=== PATIENT | male | born 1955 | race Caucasian/White ===

== ENCOUNTER 2021-11-27 22:22 | Inpatient (IN) | payer MEDICARE ==
[~2021-11-27] VITALS: Ht 195.6 cm; Wt 113.8 kg
--- NOTE | 2021-11-27 22:22 | NUR ---
PT TO ROOM 10 VIA EMS
[2021-11-27 22:55] LABS: HEMATOCRIT 39.9 % (39.0-50.0); HEMOGLOBIN 12.7 g/dl (14.0-18.0); IMMATURE GRANULOCYTES 0.2 % (0.0-5.0); MEAN CELL VOLUME 64.8 fL CALC (80.0-100.0); MEAN CORPUSCULAR HGB 20.6 pG CALC (26.0-32.0); MEAN CORPUSCULAR HGB CONC 31.8 g/dL CAL (32.0-36.0); NEUT# 3.61 thou/uL (1.82-7.42); RED BLOOD COUNT 6.16 mill/uL (4.70-6.10); RED CELL DISTRI WIDTH 17.1 % (11.5-15.5)
[2021-11-27] MEDS ORDERED: ASPIRIN81 MG PO (23:01)
[2021-11-27] MEDS ORDERED: LISINOPRIL10 MG PO (23:01)
[2021-11-27] MEDS ORDERED: PAROXETINE20 MG PO (23:02)
[2021-11-27] MEDS ORDERED: ATORVASTATIN CA40 MG PO (23:02)
[2021-11-27] MEDS ORDERED: PILOCARPINE5 MG PO (23:04)
[2021-11-27] MEDS ORDERED: PANTOPRAZOLE SO40 M1 PO (23:05)
[2021-11-27 23:17] LABS: ACT PARTIAL THROMBO TIME 29.9 SECONDS (20.0-32.5); PROTHROMBIN TIME 10.8 SECONDS (9.0-12.5)
[2021-11-27 23:21] LABS: D-DIMER 1.2 mg/L (0.19-0.60)
--- NOTE | 2021-11-27 23:40 | NUR ---
PT WITHOUT DISTRESS. SUPPORT PERSON AT BS.
[2021-11-27 23:41] LABS: ALBUMIN 4.2 g/dL (3.2-5.0); BILIRUBIN, TOTAL 0.7 mg/dL (0.0-1.4); CREATININE 1.7 mg/dL (0.7-1.3); POTASSIUM 4.1 mmol/l (3.5-5.1); TOTAL PROTEIN 7.9 g/dL (6.3-8.2)
--- NOTE | 2021-11-28 01:15 | NUR ---
PT RESTING. REASSESSMENT DONE. NO DISTRESS. SUPPORT PERSON AT BS.
--- NOTE | 2021-11-28 01:30 | NUR ---
PT TO BE ADMITTED. WILL CHANGE MONITORING TO EVERY 4 HOURS.
--- NOTE | 2021-11-28 02:48 | NUR ---
PT TRANSFERRED TO BED.
--- NOTE | 2021-11-28 06:31 | NUR ---
RESTING COMFORTABLY. NO DISTRESS.
--- NOTE | 2021-11-28 08:51 | NUR ---
REPORT GIVEN TO MADDY
--- NOTE | 2021-11-28 09:04 | NUR ---
PT ARRIVED VIA STRECTHER ACCOMPANIED BY EMI DELGADO AND Randy GUPTA RN. PT A&O X3. NO DISTRESS NOTED. PT CURRENTLY ON ROOM AIR SUSTAINING 98%. CUSTOMER SERVICE SALES ASSOCIATE COUGH NOTED ALTHOUGH PT REPORTS PRODUCTION AT TIME. CLEAR/DIMINISHED BREATH SOUNDS UPON AUSUCULTATION. ACTIVE BOWEL SOUNDS X4 QUADRANTS 11/27/21, REPORTS LOW APPETITE FOR THE PAST COUPLE OF DAYS. #20G LAC HEALTHY AND PATENT; #22G RH EMS SITE HEALTHY AND PATENT; REMDESIVIR INITIATED AT THIS TIME. PT EDUCATED ON MEDICATION PRIOR TO INITIATION. PT ALSO EDUCATED ON DECARON. PT REPORTS INCREASING WEAKNESS. ASSESSMENT COMPLETED. DISCUSSED POC. CALL LIGHT WITHIN REACH. ORIENTED PT TO ROOM. ISOLATION PRECAUTIONS IN PLACE.
[2021-11-28 10:42] VITALS: BP 150/99
--- NOTE | 2021-11-28 12:00 | NUR ---
PT WATCHING TV AT THIS TIME. STATES NO PAIN JUST FEELS VERY TIRED. BOTH IV PATENT. SALINE LOCKED. FLUSHED WITH NO RESISTANCE. FALL/SAFETY PRECAUTIONS IN PLACE. CALL LIGHT WITHIN REACH.
[2021-11-28 15:58] VITALS: BP 138/85
--- NOTE | 2021-11-28 17:01 | NUR ---
PT WATCHING TV. STATES STILL FEELING VERY WEAK. BEVARAGES GIVEN TO PT. INSTRUCTED PT THE USE OF IS. STATES NO OTHER NEEDS AT THIS TIME. CALL LIGHT WITHIN REACH. FALL/SAFETY PRECAUTIONS IN PLACE.
[2021-11-28 19:40] VITALS: BP 110/63
--- NOTE | 2021-11-28 22:02 | NUR ---
PHYSICAL ASSESMENT COMPLETE. PT CURRENTLY DENIES PAIN OR DISCOMFORT. SCHEDULED MEDICATIONS AND PRN MEDICATION ADMINISTERED, SEE E-MAR. PT DENIES ANY NEEDS AT THIS TIME. PLAN OF CARE REVIEWED, PT DENIES QUESTIONS, VERBALIZES UNDERSTANDING. ITEMS WITHIN REACH, BED LOCKED IN LOW POSITION W/ BEDRAILS UP X2. CALL CAPELLAN WITHIN REACH, AGREES TO CALL PRN.
--- NOTE | 2021-11-29 | NUR ---
PT LAYING IN BED WITH EYES CLOSED, APPEARS TO BE SLEEPING, APPEARS COMFORTABLE AND IN NO DISTRESS. RESPIRATIONS REGULAR AND UNLABORED. ITEMS REMAIN WITHIN REACH, CALL CAPELLAN REMAINS WITHIN REACH. BED REMAINS LOCKED AND IN LOW POSITION WITH BEDRAILS UP X2. WILL CONTINUE TO MONITOR.
--- NOTE | 2021-11-29 04:00 | NUR ---
PT RESTING IN BED, NO SIGNS OF DISTRESS NOTED, RESP EVEN AND UNLABORED. PT VOICES NO NEEDS OR COMPLAINTS AT THIS TIME. CALL LIGHT IN REACH, CONTINUE TO MONITOR.
[2021-11-29 05:15] VITALS: BP 191/99
[2021-11-29 05:51] LABS: HEMOGLOBIN 12.5 g/dl (14.0-18.0); IMMATURE GRANULOCYTES 0.3 % (0.0-5.0); MEAN CELL VOLUME 65.5 fL CALC (80.0-100.0); MEAN CORPUSCULAR HGB 20.5 pG CALC (26.0-32.0); MEAN CORPUSCULAR HGB CONC 31.3 g/dL CAL (32.0-36.0); NEUT# 5.19 thou/uL (1.82-7.42); RED BLOOD COUNT 6.11 mill/uL (4.70-6.10); RED CELL DISTRI WIDTH 17.4 % (11.5-15.5)
[2021-11-29 06:31] LABS: ALBUMIN 3.7 g/dL (3.2-5.0); ALKALINE PHOSPHATASE 69 u/l (38-126); ANION GAP 14 (6-22 (CALC)); BILIRUBIN, TOTAL 0.8 mg/dL (0.0-1.4); BUN 22 mg/dL (8-23); BUN/CREATININE RATIO 17 (12-20 (CALC)); C-REACTIVE PROTEIN 3.3 mg/dL (0-0.9); CARBON DIOXIDE 24 mmol/l (22-30); CHLORIDE 106 mmol/l (95-108); CREATININE 1.3 mg/dL (0.7-1.3); GFR 55 ML/MIN (>=60 (CALC)); GFR FOR AFR.AMER. > 60 ML/MIN (>=60 (CALC)); POTASSIUM 4.9 mmol/l (3.5-5.1); SGOT/AST 59 u/l (19-48); SODIUM 139 mmol/l (137-146); TOTAL PROTEIN 7.3 g/dL (6.3-8.2)
[2021-11-29 06:45] VITALS: BP 178/94
--- NOTE | 2021-11-29 06:50 | NUR ---
SPOKE TO DR BURGESS REGARDING PTS HIGH BP AT 178/94 AND TEMP AT 100.8 F. STATED HE WOULD SEE PT SHORTLY AND WAS OKAY WITH VITALS AT THE MOMENT.
--- NOTE | 2021-11-29 07:05 | NUR ---
REPORT FROM FATMATA DELGADO. ASSUMED PT CARE.
[2021-11-29 08:00] VITALS: BP 164/73
--- NOTE | 2021-11-29 08:20 | NUR ---
SPUTUM SAMPLE OBTAINED AT THIS TIME AND SENT TO LAB.
[2021-11-29 09:29] VITALS: BP 94/54
--- NOTE | 2021-11-29 09:29 | NUR ---
PT NOTED SITTING UP IN BED. RESPIRATIONS EVEN AND UNLABORED. PT AFEBRILE AT THIS TIME. MORE AWAKE AND ALERT. O2 SAT 88-89% ON RA. APPLIED 2L/M VIA NC AT THIS TIME SAT UP TO 93%. NO APPARENT DISTRESS NOTED. DISCUSSED POC. PT VERBALIZED UNDERSTANDING. CALL LIGHT WITHIN REACH. WILL CONTINUE TO MONITOR.
--- NOTE | 2021-11-29 10:45 | NUR ---
PHYSICIAN AT BEDSIDE TO DISCUSS POC.
--- NOTE | 2021-11-29 13:12 | NUR ---
PT RESTING IN BED. NO APPARENT DISTRESS NOTED. RESPIRATIONS EVEN AND UNLABORED. 02 @ 2L/M VIA NC. CALL LIGHT WITHIN REACH. WILL CONTINUE TO MONITOR.
[2021-11-29 15:00] VITALS: BP 97/53
--- NOTE | 2021-11-29 15:53 | NUR ---
PT SIGNIFICANT OTHER CALLED FOR UPDATE. PASSCODE VERIFIED, UPDATE PROVIDED.
[2021-11-29 19:00] VITALS: BP 140/77
[2021-11-30 04:00] VITALS: BP 171/82
--- NOTE | 2021-11-30 04:12 | NUR ---
PT LAYING IN BED RESTING, NO APPARENT DISTRESS, RESPIRATIONS REG & UNLABORED. PT DENIES ANY OTHER NEEDS AT THIS TIME. ITEMS WITHIN REACH BED LOCKED IN LOW POSITION W/ BEDRAILS UP X2. CALL CAPELLAN WITHIN REACH, AGREES TO CALL PRN.
[2021-11-30 05:28] LABS: IMMATURE GRANULOCYTES 0.2 % (0.0-5.0); MEAN CELL VOLUME 64.8 fL CALC (80.0-100.0); MEAN CORPUSCULAR HGB 20.4 pG CALC (26.0-32.0); MEAN CORPUSCULAR HGB CONC 31.5 g/dL CAL (32.0-36.0); NEUT# 4.62 thou/uL (1.82-7.42); RED BLOOD COUNT 5.09 mill/uL (4.70-6.10); RED CELL DISTRI WIDTH 15.9 % (11.5-15.5)
[2021-11-30 05:39] LABS: HEMOGLOBIN 10.4 g/dl (14.0-18.0)
[2021-11-30 05:42] LABS: ALKALINE PHOSPHATASE 61 u/l (38-126); BILIRUBIN, TOTAL 0.6 mg/dL (0.0-1.4); BUN 19 mg/dL (8-23); BUN/CREATININE RATIO 17 (12-20 (CALC)); CARBON DIOXIDE 24 mmol/l (22-30); CHLORIDE 107 mmol/l (95-108); CREATININE 1.1 mg/dL (0.7-1.3); GFR > 60 ML/MIN (>=60 (CALC)); GFR FOR AFR.AMER. > 60 ML/MIN (>=60 (CALC)); SGOT/AST 39 u/l (19-48); SODIUM 136 mmol/l (137-146); TOTAL PROTEIN 6.1 g/dL (6.3-8.2)
[2021-11-30 05:43] LABS: ANION GAP 9 (6-22 (CALC)); POTASSIUM 3.9 mmol/l (3.5-5.1)
[2021-11-30 08:21] VITALS: BP 161/93
--- NOTE | 2021-11-30 12:53 | NUR ---
S- Pt reported he was told to stop using 02 last pm. 0- Pt resting in bed with only min head elevation. No [address], has it there if he needs it. Pt was indep in bed mobility. Sit to and from stand with supervision only. He ambulated in room x 60' without assist other than IV pole being moved for him. Pt ambulated in and out of BR with no difficulty noted. BP 168/82 to 161/81 02 sats 93 to 94% HR 82. Nursing notified of BP. Pt instructed in exercises for home and gradual increasing activity. A- [facility]. P- will follow per POC.
[2021-11-30 16:00] VITALS: BP 112/62
[2021-11-30 19:00] VITALS: BP 125/67
[2021-12-01 04:00] VITALS: BP 136/61
[2021-12-01 06:24] LABS: HEMOGLOBIN 10.6 g/dl (14.0-18.0); IMMATURE GRANULOCYTES 0.2 % (0.0-5.0); MEAN CELL VOLUME 64.3 fL CALC (80.0-100.0); MEAN CORPUSCULAR HGB 20.7 pG CALC (26.0-32.0); MEAN CORPUSCULAR HGB CONC 32.1 g/dL CAL (32.0-36.0); NEUT# 3.39 thou/uL (1.82-7.42); RED BLOOD COUNT 5.13 mill/uL (4.70-6.10); RED CELL DISTRI WIDTH 15.8 % (11.5-15.5)
[2021-12-01 06:36] LABS: ALBUMIN 3.2 g/dL (3.2-5.0); ALKALINE PHOSPHATASE 67 u/l (38-126); ANION GAP 13 (6-22 (CALC)); BILIRUBIN, TOTAL 0.6 mg/dL (0.0-1.4); BUN 19 mg/dL (8-23); BUN/CREATININE RATIO 19 (12-20 (CALC)); C-REACTIVE PROTEIN 4.7 mg/dL (0-0.9); CARBON DIOXIDE 24 mmol/l (22-30); CHLORIDE 106 mmol/l (95-108); GFR > 60 ML/MIN (>=60 (CALC)); GFR FOR AFR.AMER. > 60 ML/MIN (>=60 (CALC)); POTASSIUM 4.4 mmol/l (3.5-5.1); SGOT/AST 34 u/l (19-48); SODIUM 138 mmol/l (137-146); TOTAL PROTEIN 6.4 g/dL (6.3-8.2)
[2021-12-01 08:06] VITALS: BP 154/87
--- NOTE | 2021-12-01 08:20 | NUR ---
SHIFT CHANGE REPORT, PT AWAKE ALERT AND ORIENTED RELAXING IN BED, NO C/O DISCOMFORT, HAVING EPISODE DRY COUGH, IVF INFUSING, CALL CAPELLAN IN REACH AND BED LOCKED IN LOWEST POSITION.
[2021-12-01 10:30] VITALS: BP 140/79
[2021-12-01] MEDS ORDERED: DEXAMETHASON6 MG PO (11:16)
[2021-12-01] MEDS ORDERED: ZITHROMAX250 MG PO (11:17)
[2021-12-01] MEDS ORDERED: ASPIRIN REGULA325 M1 PO (11:29)
--- NOTE | 2021-12-01 11:37 | NUR ---
S- pt without complaints. 0- Pt resting in bed, bed mobility was indep. He ambulated n room x 80 with no LOB noted, no assist device, therapist assisting with IV pole. Standing activities including up on toes, mini squats, marching x 20 reps each. Pt unable to maintain tandum stand without assist, SLS <10 sec on either leg. Pt reported difficulty with tandum walking/SLS even when he was younger. Pt instructed in slow progressing of activity once he gets home. Prone lying and pacing himself discussed. A- [facility] 18 home P- Follow per POC.
[2021-12-01 14:42] VITALS: BP 156/84
== END 2021-12-01 16:11 | disposition home or self-care (01) | DRG 177 ==
LOC: ED 22:22 → ED-I 22:33 → ED 11-28 02:15 → MS2 11-28 02:16 → ED-I 11-28 02:16 → MS2 11-28 07:25
PROVIDERS: Family Medicine; Nurse Practitioner; ADMIT Internal Medicine; ATTEND Internal Medicine
PROC: XW033E5 Introduction of Remdesivir Anti-infective into Peripheral Vein, Percutaneous Approach, New Technology Group 5 (ICD-10-PCS; principal; 2021-11-28)
DX: U07.1 COVID-19 (principal); J12.82 Pneumonia due to coronavirus disease 2019; J44.1 Chronic obstructive pulmonary disease with (acute) exacerbation; J44.0 Chronic obstructive pulmonary disease with (acute) lower respiratory infection; R09.02 Hypoxemia; I10 Essential (primary) hypertension; I25.10 Atherosclerotic heart disease of native coronary artery without angina pectoris; E78.5 Hyperlipidemia, unspecified; F32.A Depression, unspecified; F41.9 Anxiety disorder, unspecified; K21.9 Gastro-esophageal reflux disease without esophagitis; Z85.819 Personal history of malignant neoplasm of unspecified site of lip, oral cavity, and pharynx; Z95.5 Presence of coronary angioplasty implant and graft
CPT/HCPCS: J1650; Q9967

== ENCOUNTER 2023-02-23 15:44 | Emergency (ER) | payer OTHER, MEDICARE ==
[2023-02-23] VITALS (14 sets, daily range): BP systolic 138–201; BP diastolic 69–110
[~2023-02-23] VITALS: Ht 195.6 cm; Wt 113.3 kg
[~2023-02-23 15:44] MED LIST: ASPIRIN REGULA325 M1 PO; ASPIRIN81 MG PO; ATORVASTATIN CA40 MG PO; DEXAMETHASON6 MG PO; LISINOPRIL10 MG PO; PANTOPRAZOLE SO40 M1 PO; PAROXETINE20 MG PO; PILOCARPINE5 MG PO; ZITHROMAX250 MG PO
[2023-02-23 19:59] LABS: BASO% 0.8 % (0-3); EOS% 3.5 % (0-8); HEMATOCRIT 33.9 % (39.0-50.0); HEMOGLOBIN 10.6 g/dl (14.0-18.0); IMMATURE GRANULOCYTES 0.7 % (0.0-5.0); LYMPH% 26.4 % (15-41); MEAN CELL VOLUME 65.1 fL CALC (80.0-100.0); MEAN CORPUSCULAR HGB 20.3 pG CALC (26.0-32.0); MEAN CORPUSCULAR HGB CONC 31.3 g/dL CAL (32.0-36.0); MONO% 7.6 % (2-13); NEUT# 4.56 thou/uL (1.82-7.42); RED BLOOD COUNT 5.21 mill/uL (4.70-6.10); RED CELL DISTRI WIDTH 15.7 % (11.5-15.5)
[2023-02-23 20:08] LABS: ANION GAP 12 (6-22 (CALC)); BILIRUBIN, TOTAL 0.5 mg/dL (0.2-1.3); BUN 14 mg/dL (8-23); BUN/CREATININE RATIO 12 (12-20 (CALC)); CARBON DIOXIDE 28 mmol/l (22-30); CHLORIDE 105 mmol/l (95-108); CREATININE 1.1 mg/dL (0.7-1.3); GFR FOR AFR.AMER. > 60 ML/MIN (>=60 (CALC)); GFR OTHER RACES > 60 ML/MIN (>=60 (CALC)); POTASSIUM 4.1 mmol/l (3.5-5.1); SGOT/AST 41 u/l (19-48); SODIUM 141 mmol/l (137-146); TOTAL PROTEIN 7.6 g/dL (6.3-8.2)
[2023-02-23 20:09] LABS: ALBUMIN 4.3 g/dL (3.2-5.0); ALKALINE PHOSPHATASE 105 u/l (38-126)
[2023-02-23] MEDS ORDERED: ULTRAM50 MG PO (20:24)
== END 2023-02-23 21:08 | disposition home or self-care (01) | DRG 999 ==
LOC: ED 15:44
PROVIDERS: Emergency Medicine
DX: S00.11XA Contusion of right eyelid and periocular area, initial encounter (principal); S06.9X1A Unspecified intracranial injury with loss of consciousness of 30 minutes or less, initial encounter; M25.531 Pain in right wrist; M25.561 Pain in right knee; H11.31 Conjunctival hemorrhage, right eye; I10 Essential (primary) hypertension; W18.30XA Fall on same level, unspecified, initial encounter; Y93.89 Activity, other specified; Y99.0 Civilian activity done for income or pay; Z95.5 Presence of coronary angioplasty implant and graft

== ENCOUNTER 2023-07-01 16:38 | Inpatient (IN) | payer MEDICARE, OTHER ==
[2023-07-01] VITALS (11 sets, daily range): BP systolic 133–172; BP diastolic 69–93
[~2023-07-01] VITALS: Ht 195.6 cm; Wt 120.0 kg
[~2023-07-01 16:38] MED LIST changes: +ULTRAM50 MG PO
--- NOTE | 2023-07-01 16:38 | NUR ---
PT ARRIVED VIA EMS STRETCHER IN STABLE CONDITION, BEDSIDE REPORT GIVEN WHICH WAS HEADACHE, BLURRED VISION, DIZZINESS, AND HYPOTENSION WITH QUESTIONABLE LEFT SIDED WEAKNESS.
--- NOTE | 2023-07-01 16:40 | NUR ---
IV ESTABLISHED 20 LEFT AC, BLOOD OBTAINED. PT C/O RIGHT SIDED HEADACHE, BLURRED VISION, DIZZINESS AND LOW BLOOD PRESSURE WHICH STARTED 1.5 HOURS AGO. BEDSIDE NIHSS OBTAINED, DR LANCASTER NOTIFIED OF FINDINGS.
--- NOTE | 2023-07-01 16:55 | NUR ---
UPON OBTAINING #20 IV IN LEFT ARM, PT STARTS DESCRIBING SYMPTOMS IN DEPTH. HE STATED " IT WAS THE FUNNIEST THING. ABOUT 1.5 HOURS AGO I GOT REAL DIZZY , MY VISION BECAME BLURRED, I FELT LIKE I WAS SPINNING. I CHECKED MY BLOOD PRESSURE AND IT WAS LOW. I SAW A BLUISH/GREENISH TENT WHEN EVERYTHING GOT BLURRY. UPON ASSESSMENT, PT NOTED TO HAVE LEFT SIDED WEAKNESS. MD NOTIFIED, STROKE ALERT CALLED.
[2023-07-01 17:03] LABS: BASO% 0.6 % (0-3); EOS% 2.6 % (0-8); HEMATOCRIT 34.2 % (39.0-50.0); HEMOGLOBIN 10.8 g/dl (14.0-18.0); IMMATURE GRANULOCYTES 0.3 % (0.0-5.0); LYMPH% 17.6 % (15-41); MEAN CELL VOLUME 66.4 fL CALC (80.0-100.0); MEAN CORPUSCULAR HGB CONC 31.6 g/dL CAL (32.0-36.0); MONO% 10.7 % (2-13); NEUT# 4.52 thou/uL (1.82-7.42); NEUT% 68.2 % (42-76); RED BLOOD COUNT 5.15 mill/uL (4.70-6.10); RED CELL DISTRI WIDTH 16.5 % (11.5-15.5)
--- NOTE | 2023-07-01 17:05 | NUR ---
TELENEUROLOGY AT BEDSIDE TO EXAMINE PT. ORDERS TO DO Q20 NEURO CHECKS S/T LEFT SIDED WEAKNESS. PT AND TELENEUROLOGY DISCUSSED IN LENGTH THE RISKS AND BENEFITS OF TENECTEPLASE. DECISION MADE TO HOLD MEDICINE AT THIS TIME AND REEVALUATE PT FREQUENTLY. PT ALERT AND ORIENTED X 3, NO FACIAL DROOP OR SLURRED SPEECH NOTED, PHARMACY DIRECTOR UNEQUAL, DRIFT NOTED TO LEFT UPPER AND LOWER EXTREMITIES, SENSORY IMPAIRMENT ALSO NOTED.
[2023-07-01 17:15] LABS: ALBUMIN 3.9 g/dL (3.2-5.0); CHOLESTEROL HDL RATIO 3.5 (<4.4 (CALC)); CREATININE 1.8 mg/dL (0.7-1.3); POTASSIUM 4.4 mmol/l (3.5-5.1); TOTAL PROTEIN 7.1 g/dL (6.3-8.2)
[2023-07-01 17:16] LABS: BILIRUBIN, TOTAL 1.1 mg/dL (0.2-1.3)
[2023-07-01 17:24] LABS: INTERNATIONAL NORMALIZED RATIO 1.1 RATIO (0.7-1.3); PROTHROMBIN TIME 10.4 SECONDS (9.0-12.5)
[2023-07-01] MEDS ORDERED: NORVASC5 M1 PO (17:52)
[2023-07-01] MEDS ORDERED: HYDROCHLOROT25 MG PO (17:53)
[2023-07-01 19:20] LABS: ALBUMIN 3.9 g/dL (3.2-5.0); ALKALINE PHOSPHATASE 82 u/l (38-126); BILIRUBIN, TOTAL 1.1 mg/dL (0.2-1.3); C-REACTIVE PROTEIN < 0.5 mg/dL (0-0.9); MAGNESIUM 2.1 mg/dL (1.6-2.3); SGOT/AST 41 u/l (19-48); TOTAL PROTEIN 7.1 g/dL (6.3-8.2)
--- NOTE | 2023-07-01 20:20 | NUR ---
PT ARRIVES TO ED VIA STRETCHER, ACCOMPANIED BY Toi PRICE RN AND FAMILY MEMBER. PT AMBULATORY FROM STRETCHER TO BED WITH STEADY BALANCED GAIT.
--- NOTE | 2023-07-01 20:27 | NUR ---
PT REPORT WAS CALLED AND GIVEN TO YURIDIA. PT WAS TAKEN UP BY STRETCHER AND STILL AT BEDSIDE.
--- NOTE | 2023-07-01 21:00 | NUR ---
SPOKE WITH DR. SERNA IN ED REGARING PT'S REPORT OF MILD HEADACHE AND NAUSEA. ORDER FOR TYLENOL AND ZOFRAN RECEIVED. SEE E-MAR.
--- NOTE | 2023-07-01 21:41 | NUR ---
PRE-PREPARED AFTER HOURS MEAL FROM DIETARY DEPT WARMED AND PROVIDED TO PT.
--- NOTE | 2023-07-01 23:45 | NUR ---
PT APPEARS TO BE SLEEPING COMFORTABLY, RESPIRATIONS REGUALR AND UNLABORED, SP02 94%, SB ON WEB DEVELOPMENT INTERN. NO APPARENT DISTRESS. CALL CAPELLAN REMAINS WITHIN REACH.
[2023-07-02] VITALS (42 sets, daily range): BP systolic 95–175; BP diastolic 51–100
--- NOTE | 2023-07-02 02:26 | NUR ---
PT APPEARS TO BE SLEEPING COMFORTABLY, RESPIRATIONS REGUALR AND UNLABORED, SP02 92%, SB ON STATION REPAIRER. NO APPARENT DISTRESS. CALL CAPELLAN REMAINS WITHIN REACH.
--- NOTE | 2023-07-02 03:00 | NUR ---
NOTED PT HAS SHORT BUT FREQUENT DROPS IN SPO2 DURING SLEEP, LOW 85% NON SUSTAINED, PT TRIALED ON SUPPLEMENTAL 02 @ 2L/M VIA NC. SPO2 HAS REMAINS >95% SINCE APPLICATION OF 02. HEART RATE ON SCREEN PRINTING LOADER UNLOADER IS NOTED TO SHOW LOWER RATES IN PT'S BRADYCARDIA. DOWN INTO THE 40'S WITH ONE INSTANCE INTO THE 30'S. NON-SUSTAINED AND ASYMPTOMATIC. WILL CONTINUE TO MONITOR.
--- NOTE | 2023-07-02 04:28 | NUR ---
PT APPEARS TO BE SLEEPING COMFORTABLY, RESPIRATIONS REGUALR AND UNLABORED, SP02 99%, SB ON OVERLOCK COLLAR SETTER. NO APPARENT DISTRESS. CALL CAPELLAN REMAINS WITHIN REACH.
--- NOTE | 2023-07-02 06:30 | NUR ---
PT APPEARS TO BE SLEEPING COMFORTABLY, RESPIRATIONS REGUALR AND UNLABORED, SP02 99%, SB ON RN MATERNAL CHILD. NO APPARENT DISTRESS. CALL CAPELLAN REMAINS WITHIN REACH.
--- NOTE | 2023-07-02 08:43 | NUR ---
Patient sitting up in bed eating breakfast. Assessment completed. Patient refuses non-skid socks and SCDs. Patient to have MRI today. Lungs clear to asculation. Breathing even and unlabored. SB on the monitor. NIH score of 3. C/O SOLER, but denies needing pain relief. 2L NC, denies using oxygen at home. 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 NAD noted. Bed in low position. Call light next to R arm. Will continue to monitor.
--- NOTE | 2023-07-02 08:49 | NUR ---
CARDIAC STENTS PLACED IN 2012. METAL IN KNEE ONLY.
--- NOTE | 2023-07-02 10:00 | NUR ---
PATIENT SITTING UP IN BED. AT BEDSIDE. CONTINUES TO C/O SOLER, BUT DENIES NEEDING ANYTHING FOR PAIN RELIEF. NAD NOTED. WILL CONTINUE TO MONITOR.
[2023-07-02 11:31] LABS: BASO% 0.7 % (0-3); EOS% 4.3 % (0-8); HEMATOCRIT 35.6 % (39.0-50.0); HEMOGLOBIN 11.2 g/dl (14.0-18.0); IMMATURE GRANULOCYTES 0.2 % (0.0-5.0); MEAN CORPUSCULAR HGB 21.1 pG CALC (26.0-32.0); MEAN CORPUSCULAR HGB CONC 31.5 g/dL CAL (32.0-36.0); MONO% 12.1 % (2-13); NEUT# 3.18 thou/uL (1.82-7.42); NEUT% 57.7 % (42-76); RED BLOOD COUNT 5.31 mill/uL (4.70-6.10); RED CELL DISTRI WIDTH 16.7 % (11.5-15.5)
--- NOTE | 2023-07-02 11:45 | NUR ---
Patient lying in bed. Dr. Chavira rounding at bedside. Family member at bedside. Patient states he is still having SOLER pain, but refuses pain relief. SB on the monitor. NAD noted. Will continue to monitor.
[2023-07-02 11:46] LABS: ANION GAP 13 (6-22 (CALC)); BUN 20 mg/dL (8-23); BUN/CREATININE RATIO 17 (12-20 (CALC)); CARBON DIOXIDE 24 mmol/l (22-30); CHLORIDE 106 mmol/l (95-108); CREATININE 1.2 mg/dL (0.7-1.3); GFR FOR AFR.AMER. > 60 ML/MIN (>=60 (CALC)); GFR OTHER RACES 60 ML/MIN (>=60 (CALC)); POTASSIUM 4.4 mmol/l (3.5-5.1); SODIUM 138 mmol/l (137-146)
[2023-07-02 11:52] LABS: URINE BILIRUBIN - DIPSTICK Negative (NEGATIVE); URINE BLOOD DIPSTICK Negative (NEGATIVE); URINE COLOR Yellow; URINE GLUCOSE - DIPSTICK Negative (NEGATIVE); URINE KETONE Negative (NEGATIVE); URINE LEUK ESTERASE Negative (NEGATIVE); URINE NITRITE - DIPSTICK Negative (Negative); URINE PH 5.5 (4.5-8.0); URINE PROTEIN - DIPSTICK Negative (NEG-TRACE); URINE UROBILINOGEN - DIPSTICK 0.2 E.U./dL (0.2)
--- NOTE | 2023-07-02 14:06 | NUR ---
Patient lying in bed. Family member at bedside. C/o SOLER, but denies needing pain relief. SB on the monitor. Patient consulted cardio/neuro. NAD noted. Bed in low position. Call light within in reach. Will continue POC.
--- NOTE | 2023-07-02 16:19 | NUR ---
Patient sitting up in bed. C/o dull SOLER, denies needing any pain relief. SB on the monitor. Breathing even and unlabored. Bed in low position. Call light resting on patient's lap. Will continue to monitor.
--- NOTE | 2023-07-02 18:14 | NUR ---
PATIENT SITTING UP IN BED. BREATHING EVEN AND UNLABORED. SB ON THE MONITOR. NAD NOTED. BED IN LOW POSITION. CALL LIGHT NEXT TO L HAND.
[2023-07-03] VITALS (28 sets, daily range): BP systolic 104–158; BP diastolic 59–84
--- NOTE | 2023-07-03 | NUR ---
PT SITTING UP IN BED WATCHING TV WITH NAD AND VSS. BED IN THE LOWEST POSITION WITH BEDSIDE TABLE AND CALL LIGHT WITHIN REACH. WILL CONTINUE POC.
--- NOTE | 2023-07-03 07:15 | NUR ---
PATIENT RESTING IN BED AOX3 WITHOUT DISTRESS. NIH STROKE SCALE AT 4 (ONLY BECAUSE OF HISTORY OF PAST SX THAT CAUSED DEFICITS). PATIENT IS C/O OF SOLER OF 03/07 THAT HES HAD SINCE ADMISSION. TYLENOL ISNT WORKING FOR HIS SO HE DECLINED THAT MEDICATION. ECHO IS SCHEDULED FOR TODAY THEN DC PENDING.
[2023-07-03 07:40] LABS: BASO% 1.1 % (0-3); EOS% 4.1 % (0-8); HEMATOCRIT 34.8 % (39.0-50.0); HEMOGLOBIN 11.1 g/dl (14.0-18.0); IMMATURE GRANULOCYTES 0.2 % (0.0-5.0); LYMPH% 30.4 % (15-41); MEAN CORPUSCULAR HGB 21.1 pG CALC (26.0-32.0); MEAN CORPUSCULAR HGB CONC 31.9 g/dL CAL (32.0-36.0); MONO% 10.8 % (2-13); NEUT# 3.03 thou/uL (1.82-7.42); NEUT% 53.4 % (42-76); RED BLOOD COUNT 5.27 mill/uL (4.70-6.10); RED CELL DISTRI WIDTH 16.6 % (11.5-15.5)
[2023-07-03 07:53] LABS: ALBUMIN 3.6 g/dL (3.2-5.0); ALKALINE PHOSPHATASE 87 u/l (38-126); ANION GAP 10 (6-22 (CALC)); BILIRUBIN, TOTAL 1.1 mg/dL (0.2-1.3); BUN 19 mg/dL (8-23); BUN/CREATININE RATIO 14 (12-20 (CALC)); CALCULATED LDLCHOLESTEROL 71 mg/dL (62-129 (CALC)); CARBON DIOXIDE 27 mmol/l (22-30); CHLORIDE 106 mmol/l (95-108); CHOLESTEROL HDL RATIO 3.3 (<4.4 (CALC)); CREATININE 1.3 mg/dL (0.7-1.3); GFR FOR AFR.AMER. > 60 ML/MIN (>=60 (CALC)); GFR OTHER RACES 55 ML/MIN (>=60 (CALC)); HDL CHOLESTEROL 38 mg/dL (39.0-59.0); POTASSIUM 4.3 mmol/l (3.5-5.1); SGOT/AST 30 u/l (19-48); SODIUM 139 mmol/l (137-146); TOTAL CHOLESTEROL 125 mg/dl (0-199); TOTAL PROTEIN 6.5 g/dL (6.3-8.2); TOTAL TRIGLYCERIDES 80 mg/dl (0-149); VLDL CHOLESTROL 16 mg/dl (4-45 (CALC))
[2023-07-03 09:22] LABS: ANION GAP 10 (6-22 (CALC)); BUN 18 mg/dL (8-23); BUN/CREATININE RATIO 13 (12-20 (CALC)); CARBON DIOXIDE 27 mmol/l (22-30); CHLORIDE 105 mmol/l (95-108); CREATININE 1.3 mg/dL (0.7-1.3); GFR FOR AFR.AMER. > 60 ML/MIN (>=60 (CALC)); GFR OTHER RACES 55 ML/MIN (>=60 (CALC)); POTASSIUM 4.2 mmol/l (3.5-5.1); SODIUM 139 mmol/l (137-146)
--- NOTE | 2023-07-03 09:30 | NUR ---
PATIENT RESTING IN BED WITHOUT DISTRESS OR PAIN. AOX3 AND ANSWERING QUESTIONS APPROPRIATELY. ASSESSMENT PERFORMED INCLUDING NIH AND MEND. NO CHNAGES DROM PREVIOUS RESULTS. WAITING ON ECHO. MEDICATIONS ADMINISTERED WITHOUT ISSUE. BED IN LOW POSITION WITH UPPER BED RAILS RAISED AND CALL LIGHT WITHIN REACH.
[2023-07-03 09:38] LABS: BASO% 0.8 % (0-3); EOS% 4.4 % (0-8); HEMATOCRIT 36.5 % (39.0-50.0); HEMOGLOBIN 11.5 g/dl (14.0-18.0); IMMATURE GRANULOCYTES 0.2 % (0.0-5.0); LYMPH% 27.4 % (15-41); MEAN CELL VOLUME 66.4 fL CALC (80.0-100.0); MEAN CORPUSCULAR HGB 20.9 pG CALC (26.0-32.0); MEAN CORPUSCULAR HGB CONC 31.5 g/dL CAL (32.0-36.0); MONO% 10.6 % (2-13); NEUT# 3.36 thou/uL (1.82-7.42); NEUT% 56.6 % (42-76); RED BLOOD COUNT 5.5 mill/uL (4.70-6.10); RED CELL DISTRI WIDTH 16.8 % (11.5-15.5)
--- NOTE | 2023-07-03 11:30 | NUR ---
PATIENT AOX3 RESTING IN BED WITHOUT DISTRESS. NO CHANGES TO BE NOTED. BED IN LOW POSITION WITH UPPER BED RAILS RAISED AND CALL LIGHT WITHIN REACH.
[2023-07-03] MEDS ORDERED: NORVASC5 M1 PO (12:43)
[2023-07-03] MEDS ORDERED: ASPIRIN 81 LOW81 MG PO (12:44)
[2023-07-03] MEDS ORDERED: PLAVIX75 MG PO (12:45)
--- NOTE | 2023-07-03 13:30 | NUR ---
DISCHARGE PENDING AWAITING RESULTS FROM ECHO. PATEINT CONDITION STABLE WITH NO CHANGES. CALL LIGHT WITHIN REACH.
--- NOTE | 2023-07-03 15:14 | NUR ---
PATEINT RECEIVED DC INSTRUCTIONS AND REFERRALS. PATEINT LEFT UNIT IN STABLE CONDITION VIA WHEELCHAIR ACCOMPANIED BY RN AND SPOUSE WITH TRANSPORTATION TO HOME.
== END 2023-07-03 15:15 | disposition home health service (06) | DRG 65 ==
LOC: ED 16:38 → ED-I 18:40 → ED 18:55 → ICU 18:56
PROVIDERS: Family Medicine; ADMIT Student in an Organized Health Care Education/Training Program; ATTEND Student in an Organized Health Care Education/Training Program
DX: I63.50 Cerebral infarction due to unspecified occlusion or stenosis of unspecified cerebral artery (principal); G81.94 Hemiplegia, unspecified affecting left nondominant side; N17.9 Acute kidney failure, unspecified; R20.9 Unspecified disturbances of skin sensation; R29.704 NIHSS score 4; I95.2 Hypotension due to drugs; T46.4X5A Adverse effect of angiotensin-converting-enzyme inhibitors, initial encounter; T46.1X5A Adverse effect of calcium-channel blockers, initial encounter; T50.2X5A Adverse effect of carbonic-anhydrase inhibitors, benzothiadiazides and other diuretics, initial encounter; I10 Essential (primary) hypertension; I25.10 Atherosclerotic heart disease of native coronary artery without angina pectoris; D56.9 Thalassemia, unspecified; E78.5 Hyperlipidemia, unspecified; F41.9 Anxiety disorder, unspecified; F32.A Depression, unspecified; K21.9 Gastro-esophageal reflux disease without esophagitis; Z95.5 Presence of coronary angioplasty implant and graft; Z85.819 Personal history of malignant neoplasm of unspecified site of lip, oral cavity, and pharynx
CPT/HCPCS: Q9967

== ENCOUNTER 2024-08-06 05:12 | Inpatient (IN) | payer MEDICARE, OTHER ==
[~2024-08-06] VITALS: Ht 193 cm; Wt 119.2 kg
[2024-08-06] VITALS (13 sets, daily range): BP systolic 103–208; BP diastolic 56–116
[~2024-08-06 05:12] MED LIST changes: +ASPIRIN 81 LOW81 MG PO; +BENZONATATE200 MG PO; +CODEINE/GUAIFEN1 SOL PO; +HYDROCHLOROT25 MG PO; +LEVAQUIN750 M1 PO; +NORVASC5 M1 PO; +PLAVIX75 MG PO
[2024-08-06] MEDS ORDERED: oxyCODONE 5MG/ ACETAMINOPHEN 325MG TAB PO ONE (05:35)
[2024-08-06] MEDS ORDERED: ASPIRINCHW 81MG PO (05:47)
[2024-08-06 05:48] LABS: BASO% 0.5 % (0-3); HEMATOCRIT 35.1 % (39.0-50.0); HEMOGLOBIN 10.8 g/dl (14.0-18.0); IMMATURE GRANULOCYTES 0.1 % (0.0-5.0); MEAN CELL VOLUME 66.2 fL CALC (80.0-100.0); MEAN CORPUSCULAR HGB 20.4 pG CALC (26.0-32.0); MEAN CORPUSCULAR HGB CONC 30.8 g/dL CAL (32.0-36.0); MONO% 9.8 % (2-13); NEUT# 4.77 thou/uL (1.82-7.42); NEUT% 61.6 % (42-76); RED BLOOD COUNT 5.3 mill/uL (4.70-6.10); RED CELL DISTRI WIDTH 16.1 % (11.5-15.5)
[2024-08-06] MEDS ORDERED: PLAVIX75 MG PO (05:56)
[2024-08-06 06:01] LABS: ALBUMIN 4.2 g/dL (3.2-5.0); BILIRUBIN, TOTAL 0.7 mg/dL (0.2-1.3); CREATININE 1.3 mg/dL (0.7-1.3); POTASSIUM 4.1 mmol/l (3.5-5.1); TOTAL PROTEIN 7.2 g/dL (6.3-8.2)
[2024-08-06 06:06] LABS: D-DIMER 0.95 mg/L (0.19-0.60)
[2024-08-06 06:19] LABS: PROTHROMBIN TIME 9.7 SECONDS (9.0-12.5)
[2024-08-06] MEDS ORDERED: cefTRIAXone SODIUM 2 GM in SODIUM CHLORIDE 0.9% 100 ML IV ONE (07:30)
[2024-08-06] MEDS ORDERED: AZITHROMYCIN 500 MG in SODIUM CHLORIDE 0.9% 250 ML IV ONE (07:30)
[2024-08-06] MEDS ORDERED: SODIUM CHLORIDE 0.9% 1,000 ML IV PRN (08:30)
[2024-08-06] MEDS ORDERED: ACETAMINOPHEN 325 MG/TAB PO PRN (08:30)
[2024-08-06] MEDS ORDERED: MAGNESIUM HYDROXIDE 30 ML UDC PO PRN (08:30)
[2024-08-06] MEDS ORDERED: LISINOPRIL 10 MG/TAB PO SCH (10:00)
[2024-08-06] MEDS ORDERED: ATORVASTATIN CALCIUM 40 MG/TAB PO SCH ×2 (10:00→21:00)
[2024-08-06] MEDS ORDERED: PARoxetine 10 MG/TAB PO SCH (10:00)
[2024-08-06] MEDS ORDERED: PANTOPRAZOLE SODIUM Sesquihydr 40 MG/TAB PO SCH (10:00)
[2024-08-06] MEDS ORDERED: CLOPIDOGREL BISULFATE 75 MG/TAB TAB PO SCH (10:00)
[2024-08-06] MEDS ORDERED: HYDROmorphone HCL 2 MG/AMP IV PRN (10:25)
[2024-08-06] MEDS ORDERED: oxyCODONE 5MG/ ACETAMINOPHEN 325MG TAB PO PRN (10:25)
[2024-08-06] MEDS ORDERED: PATIENT' OWN MED 1 EA DOSE PO SCH (15:00)
[2024-08-06] MEDS ORDERED: ENOXAPARIN SODIUM 40 MG/0.4 ML SYR SC SCH (21:00)
[2024-08-07] VITALS (9 sets, daily range): BP systolic 103–151; BP diastolic 56–85
[2024-08-07 05:46] LABS: URINE BILIRUBIN - DIPSTICK Negative (NEGATIVE); URINE BLOOD DIPSTICK Negative (NEGATIVE); URINE GLUCOSE - DIPSTICK Negative (NEGATIVE); URINE KETONE Negative (NEGATIVE); URINE LEUK ESTERASE Negative (NEGATIVE); URINE NITRITE - DIPSTICK Negative (Negative); URINE PH 5.5 (4.5-8.0); URINE PROTEIN - DIPSTICK Negative (NEG-TRACE); URINE SPECIFIC GRAVITY 1.015; URINE UROBILINOGEN - DIPSTICK 0.2 E.U./dL (0.2)
[2024-08-07 05:56] LABS: HEMATOCRIT 31.9 % (39.0-50.0); MEAN CELL VOLUME 67.2 fL CALC (80.0-100.0); MEAN CORPUSCULAR HGB 21.1 pG CALC (26.0-32.0); MEAN CORPUSCULAR HGB CONC 31.3 g/dL CAL (32.0-36.0); RED BLOOD COUNT 4.75 mill/uL (4.70-6.10)
[2024-08-07 06:08] LABS: ALBUMIN 3.5 g/dL (3.2-5.0); BILIRUBIN, TOTAL 0.7 mg/dL (0.2-1.3); CREATININE 1.2 mg/dL (0.7-1.3); MAGNESIUM 2.3 mg/dL (1.6-2.3); POTASSIUM 4.2 mmol/l (3.5-5.1); TOTAL PROTEIN 6.2 g/dL (6.3-8.2)
[2024-08-07 06:15] LABS: URINE COLOR Yellow
[2024-08-07] MEDS ORDERED: AZITHROMYCIN 500 MG in SODIUM CHLORIDE 0.9% 250 ML IV SCH (09:00)
[2024-08-08 02:50] VITALS: BP 130/74
[2024-08-08 04:37] VITALS: BP 152/85
[2024-08-08 07:37] VITALS: BP 164/86
[2024-08-08] MEDS ORDERED: OMNICEF300 MG PO (11:05)
[2024-08-08] MEDS ORDERED: PERCOCET 5/325M1 TAB PO (11:05)
[2024-08-08 11:29] VITALS: BP 156/75
== END 2024-08-08 13:44 | disposition home or self-care (01) | DRG 194 ==
LOC: ED 05:12 → ED-I 07:30 → ED 07:46 → MS2 07:47
PROVIDERS: Emergency Medicine; ADMIT Internal Medicine; ATTEND Internal Medicine
DX: J18.9 Pneumonia, unspecified organism (principal); R04.2 Hemoptysis; S20.212A Contusion of left front wall of thorax, initial encounter; I10 Essential (primary) hypertension; I25.10 Atherosclerotic heart disease of native coronary artery without angina pectoris; E78.5 Hyperlipidemia, unspecified; F41.9 Anxiety disorder, unspecified; F32.A Depression, unspecified; J38.00 Paralysis of vocal cords and larynx, unspecified; K21.9 Gastro-esophageal reflux disease without esophagitis; W01.198A Fall on same level from slipping, tripping and stumbling with subsequent striking against other object, initial encounter; Y92.008 Other place in unspecified non-institutional (private) residence as the place of occurrence of the external cause; Z93.0 Tracheostomy status; Z85.21 Personal history of malignant neoplasm of larynx; Z88.2 Allergy status to sulfonamides; Z92.3 Personal history of irradiation; Z86.73 Personal history of transient ischemic attack (TIA), and cerebral infarction without residual deficits; Z95.5 Presence of coronary angioplasty implant and graft; Z88.5 Allergy status to narcotic agent
CPT/HCPCS: J0456; J1650; Q9967